=== PATIENT | male | born 1980 ===

== ENCOUNTER 2023-11-28 05:52 | Day surgery (SDC) | payer OTHER ==
[2023-11-27 09:29] VITALS: BMI 29.9
[2023-11-28] MEDS ORDERED: EPINEPHrine 1 MG/ML VIAL ONE (06:12)
[2023-11-28] MEDS ORDERED: Bupivacaine PF 0.5% 30 ML VIAL ONE (06:12)
[2023-11-28] MEDS ORDERED: Thrombin 5000 UNITS/5 ML VIAL ONE (06:12)
[2023-11-28] MEDS ORDERED: PROPOFOL 20 ML ONE (06:32)
[2023-11-28] MEDS ORDERED: Midazolam HCl 2 mg/2 ml Vial ONE (06:32)
[2023-11-28] MEDS ORDERED: fentaNYL PF 100 MCG/2 ML SYRINGE ONE ×3 (06:32→08:58)
[2023-11-28] MEDS ORDERED: Rocuronium Bromide 10 MG/ML (10ML VIAL) ONE (06:34)
[2023-11-28] MEDS ORDERED: Ondansetron PF 4 MG/2 ML Vial ONE (06:34)
[2023-11-28] MEDS ORDERED: Dexamethasone 20 MG/5 ML VIAL ONE (06:34)
[2023-11-28] MEDS ORDERED: CEFAZOLIN 2 GM VIAL ONE ×2 (06:47→10:34)
[2023-11-28] MEDS ORDERED: Sodium Chloride 0.9% 100 ML ONE ×2 (06:47→10:34)
[2023-11-28] MEDS ORDERED: Dexmedetomidine 200 MCG/2 ML VIAL ONE (07:30)
[2023-11-28] MEDS ORDERED: PHENYLEPHRINE-NS 100 MCG/ML 10 ML SYRINGE ONE (07:40)
[2023-11-28] MEDS ORDERED: SUGAMMADEX SODIUM 200 MG/2 ML VIAL ONE (07:54)
[2023-11-28] MEDS ORDERED: Ketorolac Tromethamine 30 MG (1 mL) VIAL ONE (07:54)
[2023-11-28] MEDS ORDERED: Promethazine HCl 25 MG/ML VIAL ONE (08:18)
[2023-11-28] MEDS ORDERED: Tamsulosin HCl 0.4 MG CAP ONE (08:28)
[2023-11-28] MEDS ORDERED: HYDROmorphone 0.5 MG/0.5 ML SYRINGE ONE (08:39)
[2023-11-28] MEDS ORDERED: fentaNYL 50 mcg/mL 1 mL Vial ONE (09:23)
== END 2023-11-28 11:55 | disposition home or self-care (01) ==
LOC: SDC 05:52
PROVIDERS: ATTEND Neurological Surgery
PROC: 01NB0ZZ Release Lumbar Nerve, Open Approach (ICD-10-PCS; principal; 2023-11-28)
DX: M48.061 Spinal stenosis, lumbar region without neurogenic claudication (principal); M48.062 Spinal stenosis, lumbar region with neurogenic claudication; M54.16 Radiculopathy, lumbar region; F17.200 Nicotine dependence, unspecified, uncomplicated
CPT/HCPCS: C1713; J0171; J0665; J1100; J1170; J1885; J2250; J2405; J2550; J2704; J3010; J3490